=== PATIENT | female | born 2000 | race Hispanic/Latino ===

== ENCOUNTER 2021-08-30 18:32 | Emergency (ER) | payer OTHER ==
[2021-08-30] MEDS ORDERED: Ventolin HFA Inhaler 60 PUFF INHALER ONE (21:20)
[2021-08-30 21:40] LABS: SARS-CoV-2 NAA Rapid Test Not Detected (NotDetected)
[2021-08-30 21:46] LABS: Pregnancy Test - Urine (BHCG) Negative (Negative); Pregu Control Background? CLEAR/WHITE (CLR/WHITE); Pregu Control Bar Appear? YES (CONTROL BAR)
== END 2021-08-30 22:22 | disposition home or self-care (01) ==
LOC: CSHERS 18:32
DX: J98.8 Other specified respiratory disorders (principal); B34.9 Viral infection, unspecified; Z20.822 Contact with and (suspected) exposure to COVID-19
CPT/HCPCS: 0240U; 71045; 81025

== ENCOUNTER 2022-09-20 13:54 | Emergency (ER) | payer OTHER ==
[2022-09-20] MEDS ORDERED: Ketorolac Tromethamine 30 MG/ML VIAL ONE (14:35)
[2022-09-20] MEDS ORDERED: Dexamethasone 10 MG/ML VIAL ONE (14:35)
[2022-09-20 14:44] LABS: #Basophils 0.1 10x3/uL (0.0-0.2); #Eosinphils 0.2 10x3/uL (0.0-0.5); #Monocytes 0.9 10x3/uL (0.0-1.1); #Neutrophils 10.9 10x3/uL (1.5-8.4); %Basophils 0.5 % (0.0-2.0); %Eosinophils 1.3 % (0.0-6.0); %Lymphocytes 19.5 % (18.0-47.0); %Neutrophils 72.3 % (40.0-75.0); Hemoglobin 12.1 g/dL (12.0-15.5); Mean Corpuscular HGB CONC 34.4 g/dL (32.0-36.0); Mean Corpuscular Hemoglobin 28.4 pg (27.0-33.0); Mean Corpuscular Volume 82.6 fl (81.6-98.3); Platelet Count 347 10x3/uL (150-450); RBC Distribution Width 13.2 % (11.5-14.5); Red Blood Cell (RBC) Count 4.26 10x6/uL (3.90-5.03); White Blood Cell (WBC) Count 15.1 10x3/uL (3.5-10.5)
[2022-09-20 14:50] LABS: BHCG - Serum Negative (NEGATIVE); Pregs Control Background? CLEAR/WHITE (CLR/WHITE); Pregs Control Bar Appear? YES (CONTROL BAR)
[2022-09-20 14:57] LABS: ALT (SGPT) 19 U/L (8-55); AST (SGOT) 18 U/L (5-34); Albumin 4.6 g/dL (3.5-5.0); Alkaline Phosphatase 58 U/L (40-100); Anion Gap 16 mmol/L (10-20); BUN (Urea Nitrogen) 14 mg/dL (7.0-18.7); Bilirubin, Total 0.6 mg/dL (0.2-1.2); Calc. Creatinine Clearance 0 mL/min (70-130); Calcium 10.5 mg/dL (7.8-10.44); Carbon Dioxide 23 mmol/L (22-29); Chloride 103 mmol/L (98-107); Estimated GFR 121; Globulin 4.4 g/dL (2.4-3.5); Glucose 82 mg/dL (70-105); Potassium 3.8 mmol/L (3.5-5.1); Sodium 138 mmol/L (136-145)
== END 2022-09-20 15:41 | disposition home or self-care (01) ==
LOC: CSHERS 13:54
DX: J36 Peritonsillar abscess (principal)
CPT/HCPCS: 70491; 80053; 84703; 85025; 96374; J1100; J1885

== ENCOUNTER 2023-03-09 06:17 | Emergency (ER) | payer OTHER ==
[2023-03-09] MEDS ORDERED: Ketorolac Tromethamine 30 MG/ML VIAL ONE (07:33)
== END 2023-03-09 08:20 | disposition home or self-care (01) ==
LOC: CSHERS 06:17
DX: J02.9 Acute pharyngitis, unspecified (principal); J95.831 Postprocedural hemorrhage of a respiratory system organ or structure following other procedure; F17.290 Nicotine dependence, other tobacco product, uncomplicated
CPT/HCPCS: 96372; 99282; J1885

== ENCOUNTER 2023-06-22 08:54 | Emergency (ER) | payer OTHER ==
[2023-06-22] MEDS ORDERED: Ketorolac Tromethamine 30 MG/ML VIAL ONE (10:38)
== END 2023-06-22 12:03 | disposition home or self-care (01) ==
LOC: CSHERS 08:54
DX: M54.50 Low back pain, unspecified (principal); M53.3 Sacrococcygeal disorders, not elsewhere classified; F17.290 Nicotine dependence, other tobacco product, uncomplicated
CPT/HCPCS: 72100; 72220; 96372; J1885

== ENCOUNTER 2024-02-02 12:40 | Emergency (ER) | payer OTHER | END 2024-02-02 14:35 | disposition home or self-care (01) | LOC: CSHERS 12:40 | DX: N76.0 Acute vaginitis (principal); F17.290 Nicotine dependence, other tobacco product, uncomplicated | CPT/HCPCS: 93005; 93010; 99283 ==

== ENCOUNTER → 2024-03-08 | Emergency (ER) | payer OTHER ==
[~2024-03-08] MED LIST: Ketorolac Tromethamine 30 MG (1 mL) VIAL ONE; Metoclopramide 10 MG/10 ML UDCUP ONE
== END ==
LOC: CSHERS 11:30
DX: S09.90XA Unspecified injury of head, initial encounter (principal); F17.290 Nicotine dependence, other tobacco product, uncomplicated; W22.8XXA Striking against or struck by other objects, initial encounter
CPT/HCPCS: 96372; 99283; J1885

== ENCOUNTER 2024-08-27 15:14 | Emergency (ER) | payer OTHER ==
[2024-08-27] MEDS ORDERED: predniSONE 20 MG TAB ONE (15:33)
[2024-08-27] MEDS ORDERED: Ipratropium/Albuterol 3 ML NEB ONE (18:18)
== END 2024-08-27 19:11 | disposition home or self-care (01) ==
LOC: CSHERS 15:14
DX: J98.01 Acute bronchospasm (principal); F17.210 Nicotine dependence, cigarettes, uncomplicated; F17.290 Nicotine dependence, other tobacco product, uncomplicated
CPT/HCPCS: 71045; 87428; 94640; 94760; J7512; J7620